=== PATIENT | female | born 1995 | race Caucasian/White ===

== ENCOUNTER 2023-08-15 20:53 | Emergency (ER) | payer BC, OTHER ==
[~2023-08-15] VITALS: Ht 172.7 cm; Wt 77.8 kg
[2023-08-15] MEDS: diphenhydrAMINE 50MG CAP PO ONE (21:46)
[2023-08-15] MEDS: FAMOTIDINE 20 MG TAB PO ONE (21:46)
[2023-08-15 21:58] VITALS: BP 128/61; TEMP 97.2; O2SAT 99
== END 2023-08-15 22:01 | disposition home or self-care (01) ==
LOC: M ED 20:53
DX: R22.1 Localized swelling, mass and lump, neck (principal); T78.02XA Anaphylactic reaction due to shellfish (crustaceans), initial encounter